=== PATIENT | female | born 1935 | race Caucasian/White ===

== ENCOUNTER → 2017-07-28 | Outpatient (CLI) | payer MEDICARE, OTHER ==
[2017-07-28 15:32] LABS: INTERNATIONAL NORMALIZED RATIO 2.5 RATIO; PROTHROMBIN TIME - PATIENT 25.3 SEC (9.8-11.6)
== END ==
LOC: CLAB 15:07
DX: I48.91 Unspecified atrial fibrillation (principal)
CPT/HCPCS: 36415; 85610